=== PATIENT | male | born 1995 | race Two or more races ===

== ENCOUNTER 2024-07-26 10:56 | Emergency (ER) | payer MEDICAID, SELFPAY ==
[2024-07-26 11:09] VITALS: BP 124/89; PULSE 89; RESP 19; TEMP 36.8; O2SAT 100; BMI 28.8
--- NOTE | 2024-07-26 11:45 | PD.EDRME ---
Rapid Medical Screening Exam RME Arrival date/time: 07/26/24 10:56 29y male here with c/o generalized abd pain radiates to rectum. I have greeted and performed a focused initial assessment of this patient. Initial appropriate labs ordered at this time. A comprehensive ED assessment and evaluation of the patient and analysis of all test and completion of medical decision making process will be conducted by additional ED provider. Chief Complaint: GI Bleed Time Seen by Provider: 07/26/24 11:16 Vital signs: Vital Signs Temperature 98.2 F 07/26/24 11:09 Pulse Rate 89 07/26/24 11:09 Respiratory Rate 19 07/26/24 11:09 Blood Pressure 124/89 H 07/26/24 11:09 Pulse Oximetry (%) 100 07/26/24 11:09 Oxygen Delivery Method Room Air 07/26/24 11:09
[2024-07-26 11:56] LABS: Basophils # (Auto) 0.1 Thou/mm3 (0.0-0.2); Basophils % (Auto) 1 % (0-2.5); Eosinophils # (Auto) 0.2 Thou/mm3 (0.0-0.5); Eosinophils % (Auto) 2 % (0-10); Hematocrit 40.8 % (41.0-53.0); Immature Granulocytes % (Auto) 1 % (0-0); Immature Granulocytes Auto 0.05 Thou/mm3 (0.00-0.00); Lymphocytes # (Auto) 4.2 Thou/mm3 (1.0-4.8); Lymphocytes % (Auto) 43 % (10-50); Mean Corpuscular HGB Conc 34.3 g/dl (31.0-37.0); Mean Corpuscular Hemoglobin 29.7 pg (25.0-35.0); Mean Corpuscular Volume 86 fL (80-100); Monocytes # (Auto) 0.7 Thou/mm3 (0.0-0.8); Monocytes % (Auto) 7 % (0-12); Neutrophils # (Auto) 4.7 Thou/mm3 (1.8-7.7); Neutrophils % (Auto) 48 % (37-80); Nucleated Red Blood Cell % 0 /100 WBC (0); Platelet Count 333 Thou/mm3 (140-440); RDW Standard Deviation 39.8 fL (35.1-43.9); Red Blood Count 4.72 Miln/mm3 (4.50-5.90)
[2024-07-26 12:01] LABS: Collection Type, Urine Clean Catch; Squamous Epithelial Cell,Urine 0 /hpf (0-5)
[2024-07-26 12:09] LABS: Bilirubin,Urine Negative (Negative); Blood,Urine Trace (Negative); Clarity,Urine Clear (Clear/Hazy); Color,Urine Lt-Yellow (Lt Yel-Yel); Glucose, Urine Negative (Negative); Ketones,Urine Negative (Negative); Leukocyte Esterase,Urine Positive (Negative); Nitrite,Urine Negative (Negative); Protein,Urine Negative (Neg - Trace); RBC,Urine 3 /hpf (0-3); Specific Gravity,Urine 1.016 (1.001-1.035); Urobilinogen,Urine Negative mg/dL (0.0-1.0); WBC,Urine 1 /hpf (0-5)
[2024-07-26 12:17] LABS: Alanine Aminotransferase 17 U/L (10-49); Albumin, Serum 4.9 gm/dL (3.5-5.0); Albumin/Globulin Ratio 1.8 (1.2-2.2); Alkaline Phosphatase 76 U/L (46-116); Anion Gap 7 (7-16); Aspartate Amino Transferase 23 U/L (0-34); BUN/Creatinine Ratio 14 Ratio (12-20); Bilirubin,Total 0.6 mg/dL (0.3-1.2); Blood Urea Nitrogen 11 mg/dL (9-23); Calcium 9.8 mg/dL (8.3-10.6); Calcium (Corrected) 9.8 mg/dL (8.5-10.1); Carbon Dioxide 30.1 mMol/L (20.0-31.0); Chloride 100 mMol/L (98-107); Creatinine (Component) 0.8 mg/dL (0.6-1.3); Estimated Creatinine Clearance 147.2 mL/min (>60); Globulin 2.7 gm/dL (2.3-3.5); Glucose 90 mg/dL (74-106); Lipase 32 U/L (12-53); Magnesium 1.8 mg/dL (1.6-2.6); Osmolality,Calculated 273 (275-295); Potassium 4.1 mMol/L (3.4-5.1); Sodium 137 mMol/L (136-145); Total Protein 7.6 gm/dL (5.7-8.2); eGFR > 60 See Note
--- NOTE | 2024-07-26 14:54 | PC.NURSE ---
called for pt from lobby/outside, no answerx1 @[phone]
== END 2024-07-26 17:03 | disposition left against medical advice (07) ==
LOC: SERX 11:44
PROVIDERS: Nurse Practitioner Primary Care; Emergency Provider Emergency Medicine; PCP Nurse Practitioner Family
DX: K92.2 Gastrointestinal hemorrhage, unspecified (principal); Z53.29 Procedure and treatment not carried out because of patient's decision for other reasons
CPT/HCPCS: 36415; 80053; 81001; 83690; 83735; 85025; 99281

== ENCOUNTER 2024-11-23 11:50 | Emergency (ER) | payer MEDICAID, SELFPAY ==
[2024-11-23 11:51] VITALS: BMI 29.3
--- NOTE | 2024-11-23 12:32 | PC.NURSE ---
[facility] PT BACK, NO ANSWER AT THIS TIME
--- NOTE | 2024-11-23 13:42 | PC.NURSE ---
called for pt from lobby/outside, no answerx1@ [id number]
== END 2024-11-23 14:20 | disposition left against medical advice (07) ==
LOC: SERX 14:19
PROVIDERS: Emergency Provider Emergency Medicine
DX: Z53.21 Procedure and treatment not carried out due to patient leaving prior to being seen by health care provider (principal)
CPT/HCPCS: 99281